=== PATIENT | male | born 1955 | race Caucasian/White ===

== ENCOUNTER 2020-05-20 09:50 | Observation (INO) ==
[2020-05-20] MEDS ORDERED: MEPERIDINE 50 MG/1 ML VIAL IM STA (10:36)
[2020-05-20] MEDS ORDERED: PROMETHAZINE 25 MG/1 ML VIAL IM STA (10:36)
[2020-05-20 10:44] LABS: Basophils # 0.1 10*3/uL (0.0-0.2); Basophils % 0.6 % (0.0-0.8); Eosinophils # 0.1 10*3/uL (0.0-0.87); Eosinophils % 1.8 % (0.00-10.9); Hematocrit 48.1 VOL% (42.0-52.0); Hemoglobin 15.3 GM/DL (14.0-18.0); Immature Granulocytes % 0.5 %; Immature Granulocytes Absolute 0.04 #; Lymphocytes # 2.5 10*3/uL (1.4-4.0); Lymphocytes % 31.8 % (21.2-54.2); Mean Corpuscular HGB Conc 31.8 GM/DL (32-36); Mean Corpuscular Volume 80.2 FL (87-102); Mean Platelet Volume 10.9 FL (9.6-12.0); Monocytes % 8.9 % (1.7-12.7); Neutrophils % 56.4 % (38.7-73.9); Platelet Count 158 T/CUMM (130-400); Red Cell Distribution Width 16.1 % (9.3-17.3); White Blood Count 7.7 T/CUMM (4-12)
[2020-05-20 10:52] LABS: PT Patient Result 10.3 SECS (9.8-11.9); Partial Thromboplastin Time 29.1 SECS (23.9-33.8)
[2020-05-20 11:21] LABS: Calcium 9.2 MG/DL (8.5-10.1); Osmolality,Calculated 276.8 MOS/KG (273-304)
[2020-05-20] MEDS ORDERED: diphenhydrAMINE CAP 25 MG CAPSULE PO PRN (13:58)
[2020-05-20] MEDS ORDERED: PROMETHAZINE 25 MG TABLET PO PRN (13:58)
[2020-05-20] MEDS ORDERED: hydrALAZINE 20 MG/1 ML VIAL IV PRN (13:58)
[2020-05-20] MEDS ORDERED: GLUCAGON 1 MG VIAL IM PRN ×2 (13:58)
[2020-05-20] MEDS ORDERED: ONDANSETRON 4 MG/2 ML VIAL IV PRN (13:58)
[2020-05-20] MEDS ORDERED: DEXTROSE 50% 25 GM/50 ML VIAL IV PRN ×2 (13:58)
[2020-05-20] MEDS ORDERED: DOCUSATE SODIUM 100 MG CAPSULE PO PRN (13:58)
[2020-05-20] MEDS ORDERED: ALUMINUM/MAGNES/SIMETH MAX STR 30 ML UDCUP PO PRN (13:58)
[2020-05-20] MEDS ORDERED: MEPERIDINE 50 MG/1 ML VIAL IV PRN (14:07)
[2020-05-20] MEDS ORDERED: INSULIN REGULAR 100 UNIT/ML SUBCUT SCH (16:30)
[2020-05-20] MEDS: ENOXAPARIN 40 MG/0.4 ML SYRINGE SUBCUT SCH (17:47)
[2020-05-20] MEDS: INSULIN REGULAR 100 UNIT/ML SUBCUT SCH ×2 (17:51→22:12)
[2020-05-21 04:43] LABS: Basophils % 0.7 % (0.0-0.8); Eosinophils # 0.1 10*3/uL (0.0-0.87); Eosinophils % 2.3 % (0.00-10.9); Hematocrit 47.8 VOL% (42.0-52.0); Immature Granulocytes % 0.3 %; Immature Granulocytes Absolute 0.02 #; Lymphocytes # 1.8 10*3/uL (1.4-4.0); Lymphocytes % 31.9 % (21.2-54.2); Mean Corpuscular HGB Conc 31.4 GM/DL (32-36); Mean Corpuscular Volume 79.8 FL (87-102); Mean Platelet Volume 10.8 FL (9.6-12.0); Monocytes % 8.7 % (1.7-12.7); Neutrophils % 56.1 % (38.7-73.9); Platelet Count 123 T/CUMM (130-400); Red Blood Count 5.99 MC/CUMM (3.8-5.5); Red Cell Distribution Width 15.9 % (9.3-17.3); White Blood Count 5.8 T/CUMM (4-12)
[2020-05-21 05:14] LABS: Platelet Estimate Normal
[2020-05-21 05:16] LABS: Calcium 9.3 MG/DL (8.5-10.1); Osmolality,Calculated 273.8 MOS/KG (273-304); Risk Ratio 4.86; Thyroid Stimulating Hormone 1.92 uIU/ml (0.358-3.74); VLDL CHOLESTEROL 40.4 MG/DL
[2020-05-21] MEDS: INSULIN REGULAR 100 UNIT/ML SUBCUT SCH ×3 (08:43→16:54)
[2020-05-21] MEDS ORDERED: PANTOPRAZOLE 40 MG TABLET PO SCH (09:00)
[2020-05-21] MEDS: ENOXAPARIN 40 MG/0.4 ML SYRINGE SUBCUT SCH (13:56)
[2020-05-21] MEDS ORDERED: CLOPIDOGREL 75 MG TABLET PO SCH (15:30)
[2020-05-21] MEDS ORDERED: ATORVASTATIN 40 MG TABLET PO SCH (15:30)
[2020-05-21 15:37] VITALS: BP 131/75
== END 2020-05-21 17:12 | disposition home or self-care (01) ==
LOC: N.EDINP 09:50 → N.ED 09:50 → N.TELEN 14:38
PROVIDERS: ADMIT Internal Medicine; ATTEND Internal Medicine